=== PATIENT | female | born 1970 | race African-American/Black ===

== ENCOUNTER 2022-02-24 14:45 | Emergency (ER) | payer MEDICAID ==
[~2022-02-24] VITALS: Ht 167.6 cm; Wt 59.0 kg
[2022-02-24 14:57] VITALS: BP 128/84
== END 2022-02-24 18:13 | disposition home or self-care (01) ==
LOC: ER 15:27
DX: M25.561 Pain in right knee (principal); Z90.710 Acquired absence of both cervix and uterus; Z88.0 Allergy status to penicillin
CPT/HCPCS: 73562; 99283

== ENCOUNTER 2025-03-10 12:50 | Emergency (ER) | payer MEDICAID ==
[~2025-03-10] VITALS: Ht 165.1 cm; Wt 75.0 kg
[2025-03-10 13:04] VITALS: O2SAT 98
[2025-03-10] MEDS: LABETALOL 5MG/ML 4ML INJ IV ONE (14:10)
[2025-03-10] MEDS: DIPHENHYDRAMINE 50MG/ML VIAL IV ONE (14:35)
[2025-03-10] MEDS: KETOROLAC 30MG/ML VIAL IV ONE (14:36)
[2025-03-10] MEDS: METOCLOPRAMIDE HCL 10MG TABLET PO ONE (14:36)
[2025-03-10 15:15] LABS: BASOPHILS % 0.7 % (0.0-2.0); EOSINOPHILS % 1.3 % (0.0-5.0); HEMATOCRIT. 40.8 % (36.0-48.0); HEMOGLOBIN. 14.1 g/dL (12.0-16.0); LYMPHOCYTES % 39.2 % (20.0-50.0); MEAN CORPUSCULAR HEMOGLOBIN 31.9 pg (28.0-32.0); MEAN CORPUSCULAR HGB CONC 34.7 g/dL (31.0-37.0); MEAN CORPUSCULAR VOLUME 91.9 fL (81.0-99.0); MEAN PLATELET VOLUME 9.3 fl (7.4-10.4); MONOCYTES % 5.8 % (2.0-8.0); PLATELET 261 x1000/uL (130-400); RED BLOOD CELL COUNT 4.44 mill/uL (4.2-5.4); RED CELL DISTRIBUTION WIDTH 13.1 % (11.6-14.6); WHITE BLOOD COUNT 4.9 x1000/uL (4.5-11.0)
[2025-03-10 15:18] LABS: CLARITY URINE CLEAR (CLEAR); COLOR URINE YELLOW (YELLOW); GLUCOSE URINE NEGATIVE (NEGATIVE); KETONES URINE NEGATIVE (NEGATIVE); LEUKOCYTE ESTERASE URINE NEGATIVE (NEGATIVE); NITRITE URINE NEGATIVE (NEGATIVE); OCCULT BLOOD URINE NEGATIVE (NEGATIVE); PROTEIN URINE NEGATIVE (NEGATIVE); SPECIFIC GRAVITY URINE 1.014 (1.005-1.030); UROBILINOGEN URINE 0.2 E.U./dL (0.2-1.0)
[2025-03-10 15:18] LABS: CHLORIDE 104 mEq/L (98-107); POTASSIUM 3.9 mEq/L (3.5-5.1); SODIUM 138 mEq/L (136-145)
[2025-03-10 15:19] LABS: CALCIUM 9.9 mg/dL (8.7-10.4); CARBON DIOXIDE 27 mEq/L (21-32)
[2025-03-10 15:24] LABS: CREATININE 0.8 mg/dL (0.6-1.0); GLUCOSE 90 mg/dL (70-105); UREA NITROGEN BLOOD 15 mg/dL (9-23)
[2025-03-10 16:20] LABS: TROPONIN I HIGH SENSITIVITY < 4 ng/L (3.0-34)
[2025-03-10] MEDS ORDERED: AMLO5TAB88 MT (16:49)
[2025-03-10 17:00] VITALS: BP 157/97; PULSE 77; RESP 18; TEMP 36.6; O2SAT 98
== END 2025-03-10 17:08 | disposition home or self-care (01) ==
LOC: ER 12:50
DX: I10 Essential (primary) hypertension (principal); Z88.5 Allergy status to narcotic agent; Z88.0 Allergy status to penicillin; Z90.710 Acquired absence of both cervix and uterus
CPT/HCPCS: 80048; 81003; 83880; 85025; 84484; 36415; 71045; 70450; 93005; 96374; 96375; 99285; J8597; J1200; J1885; J3490; Z7610